=== PATIENT | female | born 1980 | race Caucasian/White ===

== ENCOUNTER 2022-08-29 17:03 | Emergency (ER) | payer OTHER ==
[~2022-08-29] VITALS: Ht 165.1 cm; Wt 63.6 kg
[2022-08-29 17:12] VITALS: TEMP 97.9
[2022-08-29 18:38] VITALS: BP 119/77; PULSE 71
== END 2022-08-29 18:39 | disposition home or self-care (01) ==
LOC: COL.ER 17:03
DX: G89.18 Other acute postprocedural pain (principal); M79.661 Pain in right lower leg; Z87.828 Personal history of other (healed) physical injury and trauma